=== PATIENT | male | born 1950 | race Two or more races ===

== ENCOUNTER 2017-07-11 00:20 | Emergency (ER) | payer OTHER ==
[~2017-07-11] VITALS: Ht 167.6 cm; Wt 88.5 kg
[2017-07-11] MEDS ORDERED: ASPIRIN 81 MG TAB.CHEW PO ONE (00:30)
[2017-07-11] MEDS ORDERED: CANA100T PO (00:37)
[2017-07-11] MEDS ORDERED: ALPR1TAB2 PO (00:37)
[2017-07-11] MEDS ORDERED: METF10002 PO (00:37)
[2017-07-11] MEDS ORDERED: ATOR20TA PO (00:37)
[2017-07-11] MEDS ORDERED: ASPI-605 PO (00:37)
[2017-07-11] MEDS ORDERED: LISI2.5T2 PO (00:37)
[2017-07-11] MEDS ORDERED: ASPIRIN 81 MG TAB.CHEW ONE (00:44)
[2017-07-11 00:45] LABS: BASOPHILS % (AUTO) 0.8 % (0.0-2.0); EOSINOPHILS # (AUTO) 0.1 K/uL (0.0-0.7); EOSINOPHILS % (AUTO) 1.8 % (0.0-7.0); HEMATOCRIT 45.1 % (40-50); HEMOGLOBIN 14.6 G/DL (14.0-18.0); LYMPHOCYTES # (AUTO) 2.5 K/UL (0.8-4.8); LYMPHOCYTES % (AUTO) 40.3 % (20.5-51.5); MEAN CORPUSCULAR HEMOGLOBIN 29.1 UUG (27.0-31.0); MEAN CORPUSCULAR HGB CONC 33 g/dL (32.0-37.0); MEAN CORPUSCULAR VOLUME 89.7 FL (82.0-92.0); MONOCYTES # (AUTO) 0.4 K/UL (0.1-1.30); MONOCYTES % (AUTO) 7.1 % (0.0-11.0); NEUTROPHILS # (AUTO) 3.2 K/UL (1.8-8.9); PLATELET COUNT (AUTO) 186 K/UL (150-450); RED BLOOD CELL COUNT(AUTO) 5.02 MIL/UL (4.7-6.1); WHITE BLOOD COUNT (AUTO) 6.2 K/UL (4.0-11.2)
--- NOTE | 2017-07-11 00:55 | NUR ---
DR. RESTREPO AT BEDSIDE FOR MSE.
[2017-07-11 00:57] LABS: CREATININE 0.9 mg/dL (0.6-1.3); POTASSIUM 3.7 mmol/L (3.5-5.1)
[2017-07-11 01:09] LABS: BILIRUBIN,DIRECT 0.1 mg/dL (0.0-0.2); BILIRUBIN,TOTAL 0.2 mg/dL (0.2-1.0); TOTAL PROTEIN, SERUM 7.1 g/dL (6.4-8.2)
--- NOTE | 2017-07-11 01:28 | NUR ---
CALL PLACED TO DR. FRAZANA DAN FLAGMAN.
--- NOTE | 2017-07-11 01:29 | NUR ---
Pt. admitted to TELE , under care of Dr. YANES Belongs List completed.
[2017-07-11] MEDS ORDERED: Z GUARD REMEDY PASTE 57 GM TUBE TOP PRN (01:45)
[2017-07-11] MEDS ORDERED: HYDROCODONE/APAP 5-325MG TABLET PO PRN (01:45)
[2017-07-11] MEDS ORDERED: ACETAMINOPHEN 325 MG TABLET PO PRN (01:45)
[2017-07-11] MEDS ORDERED: MORPHINE SULFATE 2 MG/1 ML DISP.SYRIN IV PRN (01:45)
[2017-07-11] MEDS ORDERED: DEXTROSE 50% 50 ML DISP.SYRIN IV PRN (01:45)
[2017-07-11] MEDS ORDERED: HYDROCODONE/APAP 10-325 MG TABLET PO PRN (01:45)
[2017-07-11] MEDS ORDERED: INSULIN REGULAR, HUMAN 300 UNITS/3 ML VIAL SQ PRN (01:45)
[2017-07-11] MEDS ORDERED: ENOXAPARIN SODIUM 40 MG/0.4 ML DISP.SYRIN SQ SCH (01:45)
[2017-07-11] MEDS ORDERED: ALPRAZOLAM 0.25 MG TABLET PO PRN (01:45)
[2017-07-11] MEDS ORDERED: INSULIN REGULAR, HUMAN 300 UNIT/3 ML VIAL SQ PRN (01:45)
[2017-07-11] MEDS ORDERED: ONDANSETRON 4 MG/2 ML VIAL IV PRN (01:45)
[2017-07-11] MEDS ORDERED: MAGNESIUM HYDROXIDE 30 ML LIQUID UDC PO PRN (01:45)
[2017-07-11] MEDS ORDERED: PANTOPRAZOLE SODIUM 40 MG TABLET.DR PO SCH (07:00)
[2017-07-11] MEDS ORDERED: BLOOD SUGAR DIAGNOSTIC 1 EACH STRIP VI SCH (07:30)
[2017-07-11] MEDS ORDERED: ASPIRIN EC 81 MG TABLET.DR PO SCH (09:00)
[2017-07-11] MEDS ORDERED: ATORVASTATIN 20 MG TABLET PO SCH (21:00)
[2017-07-16] MEDS ORDERED: ALBUTEROL SULFATE 2.5 MG/3 ML NEBU ONE (21:40)
[2017-07-24] MEDS ORDERED: ONDANSETRON 4 MG/2 ML VIAL ONE (04:59)
[2017-07-24] MEDS ORDERED: HYDROMORPHONE 1 MG/1 ML DISP.SYRIN ONE (05:01)
== END 2017-07-11 01:30 | disposition home or self-care (01) ==
LOC: ER 00:25
DX: R07.9 Chest pain, unspecified (principal); I10 Essential (primary) hypertension; E11.9 Type 2 diabetes mellitus without complications; E78.5 Hyperlipidemia, unspecified; F41.9 Anxiety disorder, unspecified; Z79.82 Long term (current) use of aspirin
CPT/HCPCS: 36415; 70030-TC; 71010; 85025; 85730; A4663

== ENCOUNTER 2017-07-11 15:14 | Emergency (ER) | payer OTHER ==
[~2017-07-11] VITALS: Ht 170.2 cm; Wt 86.2 kg
[~2017-07-11 15:14] MED LIST: ALPR1TAB2 PO; ASPI-605 PO; ATOR20TA PO; CANA100T PO; LISI2.5T2 PO; METF10002 PO
--- NOTE | 2017-07-11 15:40 | NUR ---
pt under the impression that there will be " stress test " done in er. pt left er last night ama and was referred to manager grant for follow up ibncluding the stress test. pt did not want to be admitted to hospital and did not want to be evaluated again, wanted only stress test to be done now. pt decided to leave and follow up with the referred manager grant.
== END 2017-07-11 15:57 | disposition left against medical advice (07) ==
LOC: ER 15:15
DX: Z53.21 Procedure and treatment not carried out due to patient leaving prior to being seen by health care provider (principal)
CPT/HCPCS: A4663